=== PATIENT | male | born 1965 | race Caucasian/White ===

== ENCOUNTER 2017-07-23 21:51 | Emergency (ER) | payer BC ==
--- NOTE | 2017-07-23 22:01 | CPEKG ---
Heart Rate: 73 RR Interval: 822 P-R Interval: 156 QRSD Interval: 96 QT Interval: 376 QTC Interval: 415 P Leland: 70 QRS Leland: 66 T Wave Leland: 62 EKG Severity - NORMAL ECG - EKG Impression: SINUS RHYTHM Electronically Signed By: Sharla Nance 23-Jul-2017 23:20:49
[2017-07-23 22:20] LABS: PLATELET COUNT 237 10^3/uL (150-400)
--- NOTE | 2017-07-23 22:21 | EDPHY ---
H & P Stated Complaint: R sided CP Time Seen by Provider: 07/23/17 22:08 HPI/ROS: Chief Complaint: Chest pain HPI: 51-year-old male with a history of asthma, not on any controller medications, presenting with 1 week of chest tightness. There are no aggravating or alleviating factors. No recent illness. Pain is described as a constant tightness in his central chest which is 6 on 10. Last time he is without pain was early this morning. He is having some pain in his right triceps and behind his right shoulder blade as well. It is not pleuritic. He has no cough. ROS: 10 point Review of Systems is negative except as noted in the HPI. PMH: Asthma Social History: No smoking, rare alcohol, rare marijuana Family History: non-contributory Physical Exam: Gen: Awake, Alert, No Distress HEENT: Nose: no rhinorrhea Eyes: PERRLA, EOMI Mouth: Moist mucosa Neck: Supple, no JVD Chest: nontender, lungs clear to auscultation, prolonged expirations, diffuse wheeze with forced expiration Heart: S1, S2 normal, no murmur Abd: Soft, non-tender, no guarding Back: no CVA tenderness, no midline tenderness Ext: no edema, non-tender Skin: no rash Neuro: CN II-XII intact, Sensation grossly intact, Strength 5/5 in bilateral upper and lower extremities - Personal History Current Tetanus/Diphtheria Vaccine: Unsure Current Tetanus Diphtheria and Acellular Pertussis (TDAP): Unsure - Medical/Surgical History Hx Asthma: Yes Hx Chronic Respiratory Disease: No Hx Diabetes: No Hx Cardiac Disease: No Hx Renal Disease: No Hx Cirrhosis: No Hx Alcoholism: No Hx HIV/AIDS: No Hx Splenectomy or Spleen Trauma: No Other PMH: asthma, ortho surgeries - Social History Smoking Status: Never smoked Constitutional: Initial Vital Signs Temperature (C) 37.1 C 07/23/17 21:51 Heart Rate 78 07/23/17 21:51 Respiratory Rate 16 07/23/17 21:51 Blood Pressure 122/90 H 07/23/17 21:51 O2 Sat (%) 96 07/23/17 21:51 O2 Delivery Mode Room Air Allergies/Adverse Reactions: No Known Allergies Allergy (Unverified 05/18/12 15:20) Home Medications: Medication Instructions Recorded No Medications [No Meds] 1 ea [facility] [place] 05/18/12 Albuterol [Proventil Inhaler HFA 1 - 2 puffs IH Q4H PRN #1 mdi 07/23/17 (*)] Medical Decision Making - Diagnostics EKG Interpretation: ECG time 9:59 p.m., sinus rhythm with a rate of 73, normal axis, normal intervals, no acute ST or T-wave changes. Impression: Normal ECG. Imaging Results: Imaging Impressions Chest X-Ray 07/23/17 22:16 Impression: Normal chest. Imaging: I viewed and interpreted images myself ED Course/Re-evaluation: Chest x-ray is negative. Troponins negative. ECG is normal. Patient is improved after DuoNeb. Symptoms consistent likely with asthma exacerbation. Pain is been present all day there is no evidence of acute coronary syndrome. Will discharge with albuterol inhaler, follow up with primary care as an outpatient. - Data Points Laboratory Results: Laboratory Results 07/23/17 21:50 07/23/17 21:50 07/23/17 07/23/17 21:50 21:50 WBC 9.77 10^3/uL H 10^3/uL (3.80-9.50) RBC 4.87 10^6/uL 10^6/uL (4.40-6.38) Hgb 15.9 g/dL g/dL (13.7-17.5) Hct 45.0 % % (40.0-51.0) MCV 92.4 fL fL (81.5-99.8) MCH 32.6 pg pg (27.9-34.1) MCHC 35.3 g/dL g/dL (32.4-36.7) RDW 11.5 % % (11.5-15.2) Plt Count 237 10^3/uL 10^3/uL (150-400) MPV 9.2 fL fL (8.7-11.7) Neut % (Auto) 63.7 % % (39.3-74.2) Lymph % (Auto) 27.3 % % (15.0-45.0) [place] % (Auto) 5.9 % % (4.5-13.0) Eos % (Auto) 2.3 % % (0.6-7.6) Baso % (Auto) 0.5 % % (0.3-1.7) Nucleat RBC Rel Count 0.0 % % (0.0-0.2) Absolute Neuts (auto) 6.22 10^3/uL 10^3/uL (1.70-6.50) Absolute Lymphs (auto) 2.67 10^3/uL 10^3/uL (1.00-3.00) Absolute Monos (auto) 0.58 10^3/uL 10^3/uL (0.30-0.80) Absolute Eos (auto) 0.22 10^3/uL 10^3/uL (0.03-0.40) Absolute Basos (auto) 0.05 10^3/uL 10^3/uL (0.02-0.10) Absolute Nucleated RBC 0.00 10^3/uL 10^3/uL (0-0.01) Immature Gran % 0.3 % % (0.0-1.1) Immature Gran # 0.03 10^3/uL 10^3/uL (0.00-0.10) Sodium 142 mEq/L mEq/L (135-145) Potassium 4.0 mEq/L mEq/L (3.5-5.2) Chloride 102 mEq/L mEq/L (97-110) Carbon Dioxide 27 mEq/l mEq/l (22-31) Anion Gap 13 mEq/L mEq/L (8-16) BUN 19 mg/dL mg/dL (7-23) Creatinine 1.1 mg/dL mg/dL (0.7-1.3) Estimated GFR > 60 Glucose 96 mg/dL mg/dL (70-100) Calcium 9.2 mg/dL mg/dL (8.5-10.4) Troponin I < 0.012 ng/mL ng/mL (0.000-0.034) Departure - Departure Disposition: Home, Routine, Self-Care Clinical Impression: Asthma Condition: Good Instructions: Asthma (ED) Additional Instructions: Use the albuterol inhaler as needed for chest tightness or wheeze. Follow up with primary care physician in 3-4 days for further evaluation. Return to the emergency department for increasing chest pain, shortness of breath, or any other concerns. Referrals: Breanna Estrada MD [place] [place] - As per Instructions Prescriptions: Albuterol [Proventil Inhaler HFA (*)] 1 - 2 puffs IH Q4H PRN #1 mdi PRN Reason: Wheezing
[2017-07-24] MEDS ORDERED: ALBUTEROL INH PREPACK MDI TAKEHOME ONE ×2 (00:04→00:06)
[2017-07-24 00:09] VITALS: BP 120/77
== END 2017-07-24 00:08 | disposition home or self-care (01) ==
LOC: EDUNIT#
DX: J45.909 Unspecified asthma, uncomplicated (principal)